=== PATIENT | female | born 1955 | race Caucasian/White ===

== ENCOUNTER → 2016-09-29 | Outpatient (CLI) | payer OTHER ==
--- NOTE | 2016-09-30 11:57 | MM ---
Reason for exam: screening (asymptomatic). Last mammogram was performed 1 year and 1 month ago. History: Patient has history of breast cancer at age 46 and has history of other cancer at age 42. Cyst aspiration of the right breast, February 2011. Cyst aspiration of the right breast, May 2010. Benign cyst aspiration of the right breast, February 28, 2007. Malignant ultrasound-guided core biopsy of the right breast, October 25, 2002. Core biopsy of the right breast. Lumpectomy of the right breast. Took hormonal contraceptives for 3 years beginning at age 17. Took estrogen for 1 month beginning at age 53. Physical Findings: Nurse did not find any significant physical abnormalities on exam. MG Screening Mammo w CAD Bilateral CC and MLO view(s) were taken. Prior study comparison: August 15, 2015, bilateral MG 3d diag mammo w/cad [facility]. July 19, 2014, bilateral MG diagnostic mammo w CAD [facility]. June 14, 2013, CAD bilateral diagnostic mammogram. There are scattered fibroglandular densities. Post surgical changes on the right breast. No significant changes when compared with prior studies. ASSESSMENT: Negative, BI-RAD 1 RECOMMENDATION: Routine screening mammogram of both breasts in 1 year.
== END | disposition home or self-care (01) ==
LOC: RADMAMWWP 11:23
PROVIDERS: ATTEND Obstetrics & Gynecology
DX: Z12.31 Encounter for screening mammogram for malignant neoplasm of breast (principal)

== ENCOUNTER → 2017-10-21 | Outpatient (CLI) | payer BC ==
--- NOTE | 2017-10-24 11:04 | MM ---
Reason for exam: screening (asymptomatic). Last mammogram was performed 1 year and 1 month ago. History: Patient has history of breast cancer at age 46 and has history of other cancer at age 42. Cyst aspiration of the right breast, February 2011. Cyst aspiration of the right breast, May 2010. Benign cyst aspiration of the right breast, February 28, 2007. Malignant ultrasound-guided core biopsy of the right breast, October 25, 2002. Core biopsy of the right breast. Lumpectomy of the right breast. Took hormonal contraceptives for 3 years beginning at age 17. Took estrogen for 1 month beginning at age 53. Physical Findings: A clinical breast exam by your physician is recommended on an annual basis and results should be correlated with mammographic findings. MG Screening Mammo w CAD Bilateral CC and MLO view(s) were taken. Prior study comparison: September 29, 2016, bilateral MG screening mammo w CAD. August 15, 2015, bilateral MG 3d diag mammo w/cad [facility]. The breast tissue is heterogeneously dense. This may lower the sensitivity of mammography. Finding: There are typically benign round calcifications in the right breast. There is no discrete abnormality. ASSESSMENT: Benign, BI-RAD 2 RECOMMENDATION: Routine screening mammogram of both breasts in 1 year.
== END | disposition home or self-care (01) ==
LOC: RADMAMWWP 10:33
PROVIDERS: ATTEND Obstetrics & Gynecology
DX: Z12.31 Encounter for screening mammogram for malignant neoplasm of breast (principal); Z85.3 Personal history of malignant neoplasm of breast
CPT/HCPCS: 77067

== ENCOUNTER → 2018-03-03 | Outpatient (CLI) | payer BC ==
--- NOTE | 2018-03-03 15:48 | US ---
EXAMINATION TYPE: US thyroid st tissue head/neck DATE OF EXAM: 03/03/2018 COMPARISON: NONE CLINICAL HISTORY: K11.20 Submandibular Sialoadenitis. Right submandibular pain/sialoadenitis. Scanned bilateral neck and submandibular areas. Multiple probable lymph nodes with largest = 1.7 x 0 .5 x 0.5cm on the right and 1.4 x 0.3 x 0.7cm on the left IMPRESSION: Technologist walker benign-appearing subcentimeter lymph nodes throughout the neck bilate rally. No suspicious solid or cystic mass or concerning greater than 1 cm adenopathy is seen on image s saved.
== END | disposition home or self-care (01) ==
LOC: RADUSWWP 13:51
PROVIDERS: ATTEND Otolaryngology
DX: K11.20 Sialoadenitis, unspecified (principal)
CPT/HCPCS: 76536

== ENCOUNTER → 2018-10-26 | Outpatient (CLI) | payer BC ==
--- NOTE | 2018-10-27 09:59 | MM ---
Reason for exam: screening (asymptomatic). Last mammogram was performed 1 year ago. History: Patient has history of breast cancer at age 46 and has history of other cancer at age 42. Cyst aspiration of the right breast, February 2011. Cyst aspiration of the right breast, May 2010. Benign cyst aspiration of the right breast, February 28, 2007. Malignant ultrasound-guided core biopsy of the right breast, October 25, 2002. Core biopsy of the right breast. Lumpectomy of the right breast. Took hormonal contraceptives for 3 years beginning at age 17. Took estrogen for 1 month beginning at age 53. Physical Findings: A clinical breast exam by your physician is recommended on an annual basis and results should be correlated with mammographic findings. MG 3D Screening Mammo W/Cad Bilateral CC and MLO view(s) were taken. Prior study comparison: October 21, 2017, bilateral MG screening mammo w CAD. September 29, 2016, bilateral MG screening mammo w CAD. There are scattered fibroglandular densities. No significant changes when compared with prior studies. ASSESSMENT: Negative, BI-RAD 1 RECOMMENDATION: Routine screening mammogram of both breasts in 1 year. Manage patient on a clinical basis.
== END | disposition home or self-care (01) ==
LOC: RADMAMWWP 11:10
PROVIDERS: ATTEND Obstetrics & Gynecology
DX: Z12.31 Encounter for screening mammogram for malignant neoplasm of breast (principal)
CPT/HCPCS: 77063; 77067

== ENCOUNTER → 2020-01-10 | Outpatient (CLI) | payer MEDICARE ==
--- NOTE | 2020-01-11 14:46 | MM ---
Reason for exam: screening (asymptomatic). Last mammogram was performed 1 year and 2 months ago. History: Patient is postmenopausal, has history of breast cancer at age 46, has history of colon cancer at age 45, and has history of other cancer at age 42. Cyst aspiration of the right breast, February 2011. Cyst aspiration of the right breast, May 2010. Benign cyst aspiration of the right breast, February 28, 2007. Malignant ultrasound-guided core biopsy of the right breast, October 25, 2002. Core biopsy of the right breast. Lumpectomy of the right breast. Took hormonal contraceptives for 3 years beginning at age 17. Took estrogen for 1 month beginning at age 53. Physical Findings: A clinical breast exam by your physician is recommended on an annual basis and results should be correlated with mammographic findings. MG 3D Screening Mammo W/Cad Bilateral CC and MLO view(s) were taken. Prior study comparison: October 26, 2018, bilateral MG 3d screening mammo w/cad. October 21, 2017, bilateral MG screening mammo w CAD. There are scattered fibroglandular densities. No significant changes when compared with prior studies. ASSESSMENT: Benign, BI-RAD 2 RECOMMENDATION: Routine screening mammogram of both breasts in 1 year.
== END | disposition home or self-care (01) ==
LOC: RADMAMWWP 07:16
PROVIDERS: ATTEND Obstetrics & Gynecology
DX: Z12.31 Encounter for screening mammogram for malignant neoplasm of breast (principal)
CPT/HCPCS: 77063; 77067

== ENCOUNTER → 2021-01-23 | Outpatient (CLI) | payer MEDICARE ==
--- NOTE | 2021-01-27 09:23 | MM ---
Reason for exam: screening (asymptomatic). Last mammogram was performed 1 year ago. History: Patient is postmenopausal, has history of breast cancer at age 46, has history of colon cancer at age 45, and has history of other cancer at age 42. Cyst aspiration of the right breast, February 2011. Cyst aspiration of the right breast, May 2010. Benign cyst aspiration of the right breast, February 28, 2007. Malignant ultrasound-guided core biopsy of the right breast, October 25, 2002. Core biopsy of the right breast. Lumpectomy of the right breast. Took hormonal contraceptives for 3 years beginning at age 17. Took estrogen for 1 month beginning at age 53. Physical Findings: A clinical breast exam by your physician is recommended on an annual basis and results should be correlated with mammographic findings. MG 3D Screening Mammo W/Cad Bilateral CC and MLO view(s) were taken. Prior study comparison: January 10, 2020, bilateral MG 3d screening mammo w/cad. October 26, 2018, bilateral MG 3d screening mammo w/cad. There are scattered fibroglandular densities. There is chronic nodularity in the left breast laterally. Stable post surgical change right breast. No significant changes when compared with prior studies. ASSESSMENT: Benign, BI-RAD 2 RECOMMENDATION: Routine screening mammogram of both breasts in 1 year.
== END | disposition home or self-care (01) ==
LOC: RADMAMWWP 14:47
PROVIDERS: ATTEND Obstetrics & Gynecology
DX: Z12.31 Encounter for screening mammogram for malignant neoplasm of breast (principal); Z78.0 Asymptomatic menopausal state; Z85.3 Personal history of malignant neoplasm of breast; Z85.038 Personal history of other malignant neoplasm of large intestine; Z79.3 Long term (current) use of hormonal contraceptives
CPT/HCPCS: 77063; 77067

== ENCOUNTER → 2022-10-13 | Outpatient (CLI) | payer MEDICARE ==
--- NOTE | 2022-10-13 09:29 | MM ---
Reason for Exam: Clinical finding. Last screening mammogram was performed 9 month(s) ago. Indicated Problems: Pain of both sides (Global) for 1 Month(s). Patient History: Menarche at age 11. First Full-Term at age 21. Postmenopausal. Patient has history of breast feeding. Breast cancer, right, age 46. Colorectal cancer, age 45. Estrogen for 1 month from age 53 until age 53. Hormonal Contraceptives for 3 years from age 17 until age 20. 05/2010, Cyst Aspiration on the Right side. 02/2011, Cyst Aspiration on the Right side. 02/28/2007, Benign Cyst Aspiration on the right side. Core Biopsy on the Right side. Lumpectomy on the Right side. 10/25/2002, Malignant Ultrasound-Guided Core Biopsy on the right side. Prior Study Comparison: 08/15/2015 Bilateral Diagnostic Mammogram, [facility]. 08/15/2015 Right Diagnostic Ultrasound, [facility]. 09/29/2016 Bilateral Screening Mammogram, [facility]. 10/21/2017 Bilateral Screening Mammogram, [facility]. 10/26/2018 Bilateral Screening Mammogram, [facility]. 01/10/2020 Bilateral Screening Mammogram, [facility]. 01/23/2021 Bilateral Screening Mammogram, [facility]. 02/01/2022 Bilateral MG 3D screening mammo w/cad, [facility]. Tissue Density: There are scattered fibroglandular densities. Findings: Analyzed By CAD. Chronic bilateral nodularity and areas of asymmetric densities. Previous excisional change on the right. Further ultrasound evaluation for reported breast pain. Overall Assessment: Incomplete: need additional imaging evaluation, BI-RAD 0 Management: Diagnostic Breast Ultrasound of both breasts. For bilateral breast pain as ordered by the clinician. Electronically signed and approved by: Keyur Arredondo M.D. Radiologist
--- NOTE | 2022-10-13 10:11 | USB ---
Reason for Exam: Clinical finding. Patient History: Menarche at age 11. First Full-Term at age 21. Postmenopausal. Patient has history of breast feeding. Breast cancer, right, age 46. Colorectal cancer, age 45. Estrogen for 1 month from age 53 until age 53. Hormonal Contraceptives for 3 years from age 17 until age 20. 05/2010, Cyst Aspiration on the Right side. 02/2011, Cyst Aspiration on the Right side. 02/28/2007, Benign Cyst Aspiration on the right side. Core Biopsy on the Right side. Lumpectomy on the Right side. 10/25/2002, Malignant Ultrasound-Guided Core Biopsy on the right side. Technique: Method: Whole Breast Handheld. Prior Study Comparison: 01/10/2020 Bilateral Screening Mammogram, [facility]. 01/23/2021 Bilateral Screening Mammogram, [facility]. 02/01/2022 Bilateral MG 3D screening mammo w/cad, [facility]. Findings: The whole breast of both breasts, the axilla of both breasts and the retroareolar of both breasts were scanned. A complete US of all four quadrants of the breast , axilla, and retro-areolar region were reviewed. Right: No solid or cystic lesion. No axillary lymphadenopathy or duct ectasia. Left: * Benign 6 mm cyst at the 1:00 position. * *6 x 5 x 4 mm complex cyst versus cyst cluster at the 4:00 position, 5 cm from the nipple. Six-month follow-up recommended. * Benign 10 x 9 x 4 mm cyst at the 11:00 position, 6 cm from the nipple. * No other solid or cystic lesion or axillary lymphadenopathy. Overall Assessment: Probably benign, BI-RAD 3 Management: Diagnostic Mammogram of the left breast in 6 months. Diagnostic Breast Ultrasound of the left breast in 6 months. Follow-up for the left-sided 4:00 complex cyst versus cyst cluster. Results were given to the patient verbally at the time of exam. Electronically signed and approved by: Keyur Arredondo M.D. Radiologist
== END | disposition home or self-care (01) ==
LOC: RADMAMWWP 08:20
PROVIDERS: ATTEND Obstetrics & Gynecology
DX: N60.21 Fibroadenosis of right breast (principal); D05.01 Lobular carcinoma in situ of right breast; N64.4 Mastodynia; Z78.0 Asymptomatic menopausal state
CPT/HCPCS: 77066; 76641; G0279; 77062

== ENCOUNTER → 2023-04-18 | Outpatient (CLI) | payer MEDICARE ==
--- NOTE | 2023-04-18 10:42 | MM ---
Reason for Exam: Follow-up at short interval from prior study. Last screening mammogram was performed 6 month(s) ago. Patient History: Menarche at age 11. First Full-Term at age 21. Postmenopausal. Patient has history of breast feeding. Breast cancer, right, age 46. Colorectal cancer, age 45. Estrogen for 1 month from age 53 until age 53. Hormonal Contraceptives for 3 years from age 17 until age 20. 05/2010, Cyst Aspiration on the Right side. 02/2011, Cyst Aspiration on the Right side. 02/28/2007, Benign Cyst Aspiration on the right side. Core Biopsy on the Right side. Lumpectomy on the Right side. 10/25/2002, Malignant Ultrasound-Guided Core Biopsy on the right side. Prior Study Comparison: 01/23/2021 Bilateral Screening Mammogram, [facility]. 02/01/2022 Bilateral MG 3D screening mammo w/cad, [facility]. 10/13/2022 Bilateral MG 3D diag mammo w/cad [facility], [facility]. Tissue Density: Left: There are scattered fibroglandular densities. Findings: Analyzed By CAD. Pattern appears stable. There is a focal rounded area within the 12:00 middle position left breast. This area appears smaller and less suspicious than the prior exam. Ultrasound is recommended to complete the workup. Overall Assessment: Incomplete: need additional imaging evaluation, BI-RAD 0 Management: Diagnostic Breast Ultrasound of the left breast. A negative mammogram report should not preclude additional follow up of suspicious palpable abnormalities. Patient should continue monthly self breast exam. A clinical breast exam by your physician is recommended on an annual basis and results should be correlated with mammographic findings. Electronically signed and approved by: Brandon Vega D.O. Radiologis
--- NOTE | 2023-04-18 14:14 | USB ---
Reason for Exam: Clinical finding. Patient History: Menarche at age 11. First Full-Term at age 21. Postmenopausal. Patient has history of breast feeding. Breast cancer, right, age 46. Colorectal cancer, age 45. Estrogen for 1 month from age 53 until age 53. Hormonal Contraceptives for 3 years from age 17 until age 20. 05/2010, Cyst Aspiration on the Right side. 02/2011, Cyst Aspiration on the Right side. 02/28/2007, Benign Cyst Aspiration on the right side. Core Biopsy on the Right side. Lumpectomy on the Right side. 10/25/2002, Malignant Ultrasound-Guided Core Biopsy on the right side. Technique: Method: Whole Breast Handheld. Prior Study Comparison: 01/23/2021 Bilateral Screening Mammogram, [facility]. 02/01/2022 Bilateral MG 3D screening mammo w/cad, [facility]. 10/13/2022 Bilateral MG 3D diag mammo w/cad [facility], [facility]. Findings: The whole breast of the left breast, the axilla of the left breast and the retroareolar of the left breast were scanned. At the 1:00 position 6 cm from nipple there is a cyst measuring 0.6 x 0.5 x 0.5 cm. This is similar to the prior exam. At the 4:00 position 5 cm nipple is a lobed hypoechoic area with good through transmission. Cluster of small cysts may be present measuring 0.7 x 0.4 x 0.7 cm. This appears similar to comparison. The 11:00 position is a hypoechoic area with posterior wall enhancement and some through transmission. Internal echoes are present. The gill appear smooth. This area measures 1.3 x 0.4 x 0.9 cm. This has enlarged from comparison. Cyst aspiration could be attempted. This may be solid and core biopsy is recommended. Overall Assessment: Suspicious, BI-RAD 4 Management: Ultrasound Core Biopsy of the left breast. A clinical breast exam by your physician is recommended on an annual basis and results should be correlated with mammographic findings. This exam should not preclude additional follow-up of suspicious palpable abnormalities. Results were given to the patient verbally at the time of exam. Electronically signed and approved by: Brandon Vega D.O. Radiologis
== END | disposition home or self-care (01) ==
LOC: RADMAMWWP 10:11
PROVIDERS: ATTEND Obstetrics & Gynecology
DX: N60.02 Solitary cyst of left breast (principal); R92.322 Mammographic fibroglandular density, left breast; Z78.0 Asymptomatic menopausal state; Z85.3 Personal history of malignant neoplasm of breast
CPT/HCPCS: 77065; 76641; G0279; 77061

== ENCOUNTER → 2023-04-27 | Day surgery (SDC) | payer MEDICARE ==
--- NOTE | 2023-05-04 11:56 | MM ---
Reason for Exam: Post Procedure Mammogram. Last screening mammogram was performed 6 month(s) ago. Patient History: Menarche at age 11. First Full-Term at age 21. Postmenopausal. Patient has history of breast feeding. Breast cancer, right, age 46. Colorectal cancer, age 45. Estrogen for 1 month from age 53 until age 53. Hormonal Contraceptives for 3 years from age 17 until age 20. 05/2010, Cyst Aspiration on the Right side. 02/2011, Cyst Aspiration on the Right side. 02/28/2007, Benign Cyst Aspiration on the right side. Core Biopsy on the Right side. Lumpectomy on the Right side. 10/25/2002, Malignant Ultrasound-Guided Core Biopsy on the right side. Prior Study Comparison: 02/01/2022 Bilateral MG 3D screening mammo w/cad, [facility]. 10/13/2022 Bilateral MG 3D diag mammo w/cad [facility], [facility]. 04/18/2023 Left MG 3D diag mammo w/cad , [facility]. Tissue Density: Left: There are scattered fibroglandular densities. Pathology Description: Location: 11 o'clock. Marker Left Behind. Needle Type: Mammotome Cores: 7 Skin Nicks: 1 Gauge: 13 The procedure of ultrasound guided core biopsy was explained to the patient. Benefits, alternatives, and risks were discussed. An informed consent was then obtained. A timeout was performed. The patient was placed in supine positioning for imaging and for the procedure. The overlying skin was prepped and draped in usual sterile fashion. Lidocaine was used as anesthetic into the skin and subcutaneous tissue up to area of concern in the left breast. A small skin homero was made with surgical scalpel. Under ultrasound guidance, a 12-gauge vacuum assisted biopsy gun device was used to obtain 7 core samples. A biopsy clip was left in lesion. Hydromark "core marker was placed. The patient tolerated the procedure well without any immediate complication. The patient was kept in the radiology department for short stay after the procedure and then discharged home in stable condition. Postprocedure mammogram: The patient was transferred to mammography for physician ordered post procedure mammogram for clip placement verification. Impression: Successful ultrasound guided core biopsy of area of concern in the left breast, full pathology results to follow. Recommendations: 1. Recommendations are pending pathology results. Pathology Results: Result: Benign, Fibroadenomatoid hyperplasia. LEFT BREAST, 11:00, ULTRASOUND GUIDED NEEDLE CORE BIOPSY: Fibroadenoma/fibroadenomatoid hyperplasia in a background of fibrocystic changes including sclerosing adenosis with rare microcalcifications. Overall Assessment: Benign Assessment: MG diagnostic mammo LT wo CAD. - Left: Benign, BI-RAD 2. Management: Diagnostic Mammogram of the left breast in 6 months. Electronically signed and approved by: Brandon Vega D.O. Radiologis
== END | disposition home or self-care (01) ==
LOC: RADUSWWP 12:36
PROVIDERS: ATTEND Obstetrics & Gynecology
DX: N60.22 Fibroadenosis of left breast (principal)
CPT/HCPCS: 88305; 77065; 19083; A4648

== ENCOUNTER → 2023-10-21 | Outpatient (CLI) | payer MEDICARE ==
--- NOTE | 2023-10-21 14:58 | MM ---
Reason for Exam: Follow-up at short interval from prior study. Last screening mammogram was performed 12 month(s) ago. Patient History: Menarche at age 11. First Full-Term at age 21. Postmenopausal. Patient has history of breast feeding. Breast cancer, right, age 46. Colorectal cancer, age 45. Previous Hyperplasia w/o Atypia at age 67. Estrogen for 1 month from age 53 until age 53. Hormonal Contraceptives for 3 years from age 17 until age 20. 04/27/2023, Benign US biopsy breast VAD LT on the left side. 05/2010, Cyst Aspiration on the Right side. 02/2011, Cyst Aspiration on the Right side. 02/28/2007, Benign Cyst Aspiration on the right side. Core Biopsy on the Right side. Lumpectomy on the Right side. 10/25/2002, Malignant Ultrasound-Guided Core Biopsy on the right side. Prior Study Comparison: 10/26/2018 Bilateral Screening Mammogram, [facility]. 01/10/2020 Bilateral Screening Mammogram, [facility]. 01/23/2021 Bilateral Screening Mammogram, [facility]. 02/01/2022 Bilateral MG 3D screening mammo w/cad, [facility]. 10/13/2022 Bilateral MG 3D diag mammo w/cad [facility], [facility]. 10/13/2022 Bilateral US breast [facility], [facility]. 04/18/2023 Left MG 3D diag mammo w/cad [facility], [facility]. 04/18/2023 Left US breast LT, [facility]. 04/27/2023 Left MG diagnostic mammo LT wo CAD., [facility]. Tissue Density: There are scattered areas of fibroglandular density. Findings: Analyzed By CAD. Stable postsurgical and posttreatment changes right breast. Chronic nodularity central left cc view middle depth. Microclip just medial to this area related to prior biopsy. No symmetric and change from prior exams. Overall Assessment: Benign, BI-RAD 2 Management: Screening Mammogram of both breasts in 1 year. . Results were given to the patient verbally at the time of exam. Patient should continue monthly self-breast exams. A clinical breast exam by your physician is recommended on an annual basis. This exam should not preclude additional follow-up of suspicious palpable abnormalities. Electronically signed and approved by: Keyur Arredondo M.D. Radiologist
== END | disposition home or self-care (01) ==
LOC: RADMAMWWP 13:44
PROVIDERS: ATTEND Obstetrics & Gynecology
DX: R92.323 Mammographic fibroglandular density, bilateral breasts (principal); D24.2 Benign neoplasm of left breast; D05.01 Lobular carcinoma in situ of right breast; Z78.0 Asymptomatic menopausal state; Z85.3 Personal history of malignant neoplasm of breast
CPT/HCPCS: 77066; G0279; 77062